=== PATIENT | female | born 1930 | race Caucasian/White ===

== ENCOUNTER 2017-08-10 08:57 | Emergency (ER) | payer MEDICARE, OTHER ==
[~2017-08-10] VITALS: Ht 147.3 cm; Wt 69.8 kg
[~2017-08-10 08:57] MED LIST: ACET325 PO; ACET500 PO; ALEN10 PO; ALEN70 PO; AMLO5; AMLO5 PO; ARTTEAOPSB OU; ASPI325 PO; Aldactone25 MG PO; Avastin25 MG/ML INJ; BUDE6HFA INH; CALACE667G PO; CALC.25 PO; CALCA500CH PO; CALCAVITD PO; CALCIUM; CHOL10002 PO; CLON.1 PO; COMBIVENT RESPIM4 GM INH; DARB200I SQ; DESO.05TCA TOP; DIAZ2 PO; DIGO.125 PO; DOCU100 PO; DULO30 PO; DULO60 PO; ELIQUIS2.5 MG PO; EPOE20I SC; ERGO400 PO; FENT50TP TOP; FERR325 PO; FISH OIL 1,0001 EAC2 PO; FISH1000 PO; FLUO20; FLUSAL2505 INH; FLUT44OIA; FURO20 PO; FURO40 PO; FURO80 PO; Ferrous Sulfat325 M2 PO; Flovent 44 mc10.6 GM INH; GABA100 PO; Gas-X125 MG PO; HYDACE5; HYDACE5 PO; HYDMOR2 PO; IPRA.03NI; IRON150C PO; K-Dur 20 meq T20 MEQ PO; Ketoconazole15 GM TP; LAVAP17G PO; LEVCAR2510 PO; LEVFLO500 PO; LEVSOD50 PO; LIDO5TO TOP; LIDO5TP TOP; LOSA50 PO; Lugol's Strong I1 ML PO; METO50 PO; METO50ER PO; MORP15ER PO; MORP30ER PO; MULVITA; MULVITMINF PO; NITR.4SL SL; NITR100CA PO; NITRSPRAY; OMEP10ER PO; OMEP20ER; OMEP20ER PO; OMEPRAZOLE MAGN20 MG PO; OXYACE5T PO; OXYB5; OXYB5 PO; OXYB5ER PO; PARI1 PO; PIRO20; POTA10T PO; POTCHL10ER PO; PRAV20 PO; PRESERVISION A1 EACH PO; PROBIOTIC1 EAC1 PO; PROM25 PO; PYRI100 PO; Prilosec20 MG PO; QUET100 PO; QUET25 PO; RAME8 PO; RISE35 PO; RISE5; SENN187 PO; SODCHL.65S; SYSTANE BALANCE10 ML BOTHEYES; TOCO400; TRAM50; TRAM50 PO; TRAZ50; VALS80; VALS80 PO; VENL150ER PO; VIT D; VIT1CAPS12 PO; VITB100; VITB100 PO; Vitamin C100 M1 PO; WARF2 PO; WARF3; WARF3 PO; WARF5 PO; [UNRECOGNIZED DRUG - OTHER]
[2017-08-10 10:00] LABS: BASOPHILS ABSOLUTE AUTO 0.05 K/mm3 (0.00-0.23); BASOPHILS PERCENT AUTO 0 % (0-2); EOSINOPHILS PERCENT AUTO 2 % (0-6); Hematocrit 38.8 % (33.0-51.0); Hemoglobin 12.2 g/dL (11.5-16.0); IMMATURE GRAN ABSOLUTE AUTO 0.13 K/mm3 (0.00-0.10); IMMATURE GRAN PERCENT AUTO 1 % (0-1); LYMPHOCYTES ABSOLUTE AUTO 2.11 K/mm3 (0.84-5.20); LYMPHOCYTES PERCENT AUTO 17 % (21-46); MONOCYTES ABSOLUTE AUTO 0.66 K/mm3 (0.16-1.47); MONOCYTES PERCENT AUTO 5 % (4-13); Mean Corpuscular HGB 30.7 pg (26.0-34.0); Mean Corpuscular HGB Conc 31.4 g/dL (31.5-36.5); Mean Corpuscular Volume 98 fL (80-100); NEUTROPHILS ABSOLUTE AUTO 9.32 K/mm3 (1.96-9.15); NEUTROPHILS PERCENT AUTO 74 % (41-73); Platelet Count 197 K/mm3 (150-400); RDW Coefficient Variation 13.5 % (11.7-14.2); RDW Standard Deviation 48.6 fL (35.1-46.3); Red Blood Cell Count 3.98 M/mm3 (3.80-5.20); White Blood Cell Count 12.57 K/mm3 (4.00-11.30)
[2017-08-10 10:17] LABS: Alanine Aminotransfer (ALT/SGP 8 U/L (12-78); Albumin, Blood 3.2 g/dL (3.4-5.0); Albumin/Globulin Ratio 0.7 (0.8-1.8); Alk Phos 121 U/L (50-136); Anion Gap 10 mmol/L (6-16); Aspartate Aminotrans (AST/SGOT 19 U/L (12-37); Bilirubin, Total 0.5 mg/dL (0.1-1.0); Blood Urea Nitrogen 27 mg/dL (8-24); Bun/Creatinine Ratio 26.5 (12.0-20.0); CO2, Blood 26 mmol/L (21-32); Calcium, Blood 8.6 mg/dL (8.5-10.1); Chloride, Blood 101 mmol/L (98-108); Creatinine, Blood 1.02 mg/dL (0.40-1.00); Globulin, Blood 4.3 g/dL (2.2-4.0); Glomerular Filtration Rate 55 (60-); Glucose, Blood 186 mg/dL (70-99); Sodium, Blood 137 mmol/L (136-145); Total Protein, Blood 7.5 g/dL (6.4-8.2); Troponin I <0.015 ng/mL (0.000-0.040)
[2017-08-10 11:08] LABS: Source, Urine Catheter
[2017-08-10 11:18] LABS: Bilirubin, Urine Neg (Neg); Blood, Urine 1+ (Neg); Glucose Qualitative, Urine Neg (Neg); Ketones, Urine Neg (Neg); Leukocyte Esterase, Urine 1+ (Neg); Nitrite, Urine Neg (Neg); Protein, Urine Neg (Neg); Specific Gravity, Urine 1.015 (1.003-1.022); Urobilinogen, Urine NORM (Normal)
[2017-08-10 11:39] LABS: Appearance, Urine Clear (Clear); Color, Urine Yellow (P-Yellow)
[2017-08-10 11:41] LABS: Red Blood Cells, Urine 0-2 /hpf (0-2); Squamous Epithelial Cells Few /hpf (Few)
[2017-08-10 11:42] LABS: Bacteria Many /hpf
[2017-08-10] MEDS ORDERED: POTCHL10ER PO (11:57)
[2017-08-10] MEDS ORDERED: LEVE500 PO (11:58)
[2017-08-10] MEDS ORDERED: THERA TABLET400 MCG PO (12:00)
[2017-08-10] MEDS ORDERED: Melatonin1 MG PO (12:01)
[2017-08-10] MEDS ORDERED: TRAZ50 PO (12:01)
[2017-08-10] MEDS ORDERED: ALBU90OI6 INH (12:02)
[2017-08-10] MEDS ORDERED: PROM25 PO (12:03)
[2017-08-10] MEDS ORDERED: LEVO750 PO (12:20)
[2018-03-25] MEDS ORDERED: D3-20002000 UNIT PO (17:11)
[2018-03-25] MEDS ORDERED: LEVE500 PO (17:16)
[2018-03-25] MEDS ORDERED: LIDO5TO (17:18)
[2018-03-25] MEDS ORDERED: Morphine Sulfat15 MG PO (17:21)
[2018-03-25] MEDS ORDERED: ALBU90OI61 INH ×2 (17:24)
[2018-03-25] MEDS ORDERED: Zantac150 MG PO (17:26)
[2018-03-25] MEDS ORDERED: CYCL10 PO (18:27)
== END 2017-08-10 12:46 | disposition home or self-care (01) ==
LOC: ER 08:57
PROVIDERS: Emergency Medicine
DX: S00.83XA Contusion of other part of head, initial encounter (principal); S60.512A Abrasion of left hand, initial encounter; S60.511A Abrasion of right hand, initial encounter; J18.9 Pneumonia, unspecified organism; N39.0 Urinary tract infection, site not specified; I13.0 Hypertensive heart and chronic kidney disease with heart failure and stage 1 through stage 4 chronic kidney disease, or unspecified chronic kidney disease; I50.9 Heart failure, unspecified; N18.9 Chronic kidney disease, unspecified; I48.91 Unspecified atrial fibrillation; I25.10 Atherosclerotic heart disease of native coronary artery without angina pectoris; K21.9 Gastro-esophageal reflux disease without esophagitis; F31.9 Bipolar disorder, unspecified; W18.30XA Fall on same level, unspecified, initial encounter; Z88.0 Allergy status to penicillin; Z88.5 Allergy status to narcotic agent; Z88.8 Allergy status to other drugs, medicaments and biological substances; Z79.899 Other long term (current) drug therapy
CPT/HCPCS: 36415; 70450; 70486; 71046; 72125; 73030; 80053; 81001; 84484; 85025; 93005; 93010; 99284; P9612

== ENCOUNTER 2018-03-28 13:18 | Inpatient (IN) | payer MEDICARE, OTHER ==
[~2018-03-28] VITALS: Ht 142.2 cm; Wt 58.9 kg
[~2018-03-28 13:18] MED LIST changes: +ALBU90OI6 INH; +ALBU90OI61 INH; +CYCL10 PO; +D3-20002000 UNIT PO; +LEVE500 PO; +LEVO750 PO; +LIDO5TO; +Melatonin1 MG PO; +Morphine Sulfat15 MG PO; +THERA TABLET400 MCG PO; +TRAZ50 PO; +Zantac150 MG PO
[2018-03-28 15:16] LABS: BASOPHILS ABSOLUTE AUTO 0.02 K/mm3 (0.00-0.23); BASOPHILS PERCENT AUTO 0 % (0-2); EOSINOPHILS ABSOLUTE AUTO 0.12 K/mm3 (0.00-0.68); EOSINOPHILS PERCENT AUTO 1 % (0-6); Hematocrit 36.1 % (33.0-51.0); Hemoglobin 11.5 g/dL (11.5-16.0); IMMATURE GRAN ABSOLUTE AUTO 0.04 K/mm3 (0.00-0.10); IMMATURE GRAN PERCENT AUTO 0 % (0-1); LYMPHOCYTES ABSOLUTE AUTO 2.34 K/mm3 (0.84-5.20); LYMPHOCYTES PERCENT AUTO 20 % (21-46); MONOCYTES ABSOLUTE AUTO 0.66 K/mm3 (0.16-1.47); MONOCYTES PERCENT AUTO 6 % (4-13); Mean Corpuscular HGB 29.6 pg (26.0-34.0); Mean Corpuscular HGB Conc 31.9 g/dL (31.5-36.5); Mean Corpuscular Volume 93 fL (80-100); Mean Platelet Volume 10.7 fL (9.1-12.4); NEUTROPHILS ABSOLUTE AUTO 8.71 K/mm3 (1.96-9.15); NEUTROPHILS PERCENT AUTO 73 % (41-73); Platelet Count 188 K/mm3 (150-400); RDW Coefficient Variation 13.7 % (11.7-14.2); RDW Standard Deviation 46.9 fL (35.1-46.3); Red Blood Cell Count 3.88 M/mm3 (3.80-5.20); White Blood Cell Count 11.89 K/mm3 (4.00-11.30)
[2018-03-28 15:38] LABS: Albumin, Blood 3.2 g/dL (3.4-5.0); Albumin/Globulin Ratio 0.7 (0.8-1.8); Bun/Creatinine Ratio 19.4 (12.0-20.0); Calcium, Blood 9.4 mg/dL (8.5-10.1); Creatinine, Blood 1.08 mg/dL (0.40-1.00); Globulin, Blood 4.5 g/dL (2.2-4.0); Potassium, Blood 4.8 mmol/L (3.5-5.5); Total Protein, Blood 7.7 g/dL (6.4-8.2)
[2018-03-29 05:15] LABS: BASOPHILS ABSOLUTE AUTO 0.01 K/mm3 (0.00-0.23); BASOPHILS PERCENT AUTO 0 % (0-2); EOSINOPHILS PERCENT AUTO 0 % (0-6); Hematocrit 33.9 % (33.0-51.0); Hemoglobin 10.9 g/dL (11.5-16.0); IMMATURE GRAN ABSOLUTE AUTO 0.02 K/mm3 (0.00-0.10); IMMATURE GRAN PERCENT AUTO 0 % (0-1); LYMPHOCYTES ABSOLUTE AUTO 0.97 K/mm3 (0.84-5.20); LYMPHOCYTES PERCENT AUTO 19 % (21-46); MONOCYTES ABSOLUTE AUTO 0.05 K/mm3 (0.16-1.47); MONOCYTES PERCENT AUTO 1 % (4-13); Mean Corpuscular HGB 29.7 pg (26.0-34.0); Mean Corpuscular HGB Conc 32.2 g/dL (31.5-36.5); Mean Corpuscular Volume 92 fL (80-100); Mean Platelet Volume 10.8 fL (9.1-12.4); NEUTROPHILS ABSOLUTE AUTO 4.14 K/mm3 (1.96-9.15); NEUTROPHILS PERCENT AUTO 80 % (41-73); Platelet Count 179 K/mm3 (150-400); RDW Coefficient Variation 13.4 % (11.7-14.2); RDW Standard Deviation 45.9 fL (35.1-46.3); Red Blood Cell Count 3.67 M/mm3 (3.80-5.20); White Blood Cell Count 5.19 K/mm3 (4.00-11.30)
[2018-03-29 05:24] LABS: Bun/Creatinine Ratio 21.6 (12.0-20.0); Calcium, Blood 8.9 mg/dL (8.5-10.1); Creatinine, Blood 1.02 mg/dL (0.40-1.00); Potassium, Blood 4.3 mmol/L (3.5-5.5)
[2018-03-29] MEDS ORDERED: DESONIDE TOP (09:36)
[2018-03-29] MEDS ORDERED: LINZESS145 MCG PO (09:46)
[2018-03-29] MEDS ORDERED: MIRALAX17 GM PO (09:49)
[2018-03-29] MEDS ORDERED: CYCL10 PO (09:51)
[2018-03-30] MEDS ORDERED: PRED20 PO (13:19)
[2018-03-30] MEDS ORDERED: GENTEAL TEARS 015 M1 BOTHEYES (13:19)
[2018-03-30] MEDS ORDERED: DULERA 200 MCG/13 GM INH (13:20)
== END 2018-03-30 14:55 | disposition home health service (06) | DRG 871 ==
LOC: ER 13:18 → MEDS 16:16 → ENPENDDIS 03-30 10:00 → MEDS 03-30 14:55
PROVIDERS: Emergency Medicine; Family Medicine
DX: A41.9 Sepsis, unspecified organism (principal); J96.01 Acute respiratory failure with hypoxia; J44.1 Chronic obstructive pulmonary disease with (acute) exacerbation; J44.0 Chronic obstructive pulmonary disease with (acute) lower respiratory infection; J20.9 Acute bronchitis, unspecified; R13.10 Dysphagia, unspecified; Z74.09 Other reduced mobility; N18.3 Chronic kidney disease, stage 3 (moderate); I12.9 Hypertensive chronic kidney disease with stage 1 through stage 4 chronic kidney disease, or unspecified chronic kidney disease; G20 Parkinson's disease; I25.10 Atherosclerotic heart disease of native coronary artery without angina pectoris; E78.5 Hyperlipidemia, unspecified; F31.9 Bipolar disorder, unspecified; Z66 Do not resuscitate; Z88.5 Allergy status to narcotic agent; Z88.0 Allergy status to penicillin; Z88.8 Allergy status to other drugs, medicaments and biological substances; Z79.899 Other long term (current) drug therapy
CPT/HCPCS: 36415; 71046; 80048; 80053; 83605; 83880; 84145; 84484; 85025; 87040; 92610; 93005; 93010; 94640; 94760; 94761; 94762; 97162; 97165; 97530; 97535; 99285-25; G8978; G8979; G8987; G8988; G8996; G8997; G8998; J1956; J2920; J2930